=== PATIENT | male | born 1990 | race Caucasian/White ===

== ENCOUNTER 2018-05-12 10:31 | Emergency (ER) | payer BC, SELFPAY ==
--- NOTE | 2018-05-12 14:30 | RAD ---
PA AND LATERAL VIEWS CHEST: HISTORY: Cough. FINDINGS: Comparison is made with the exam of 05/08/2018. The heart size is normal. The lungs are expanded without focal areas of consolidation, pneumothorace s, or pleural effusions. No acute osseous abnormalities are seen. IMPRESSION: No radiographic evidence of acute cardiopulmonary process. POS: [facility]
== END 2018-05-12 12:34 | disposition home or self-care (01) ==
LOC: NAV ERS 10:31
DX: R05 Cough (principal); R07.81 Pleurodynia; F17.290 Nicotine dependence, other tobacco product, uncomplicated
CPT/HCPCS: 71046; 93005

== ENCOUNTER 2018-07-17 19:01 | Emergency (ER) | payer BC ==
[2018-07-17] MEDS ORDERED: Ketorolac Tromethamine 60 MG/2 ML VIAL ONE (19:41)
[2018-07-17] MEDS ORDERED: traMADol HCl 50 MG TAB ONE (19:41)
== END 2018-07-17 19:48 | disposition home or self-care (01) ==
LOC: NAV ERS 19:01
DX: M54.42 Lumbago with sciatica, left side (principal); F17.290 Nicotine dependence, other tobacco product, uncomplicated
CPT/HCPCS: 96372; J1885

== ENCOUNTER 2018-10-15 00:04 | Emergency (ER) | payer SELFPAY | END 2018-10-15 00:19 | disposition home or self-care (01) | LOC: NAV ERS 00:04 | DX: T16.1XXA Foreign body in right ear, initial encounter (principal); F41.9 Anxiety disorder, unspecified; F17.210 Nicotine dependence, cigarettes, uncomplicated | CPT/HCPCS: 69200 ==